=== PATIENT | male | born 1985 | race Caucasian/White ===

== ENCOUNTER 2022-08-02 06:10 | Day surgery (SDC) | payer OTHER ==
[~2022-08-02] VITALS: Ht 188 cm; Wt 108.9 kg
[2022-08-02] MEDS ORDERED: TRAM1TAB98 PO (11:00)
== END 2022-08-02 12:25 | disposition home or self-care (01) ==
LOC: CIR.AMB 06:10
PROVIDERS: ATTEND Surgery
DX: C62.90 Malignant neoplasm of unspecified testis, unspecified whether descended or undescended (principal); Z45.2 Encounter for adjustment and management of vascular access device; F12.90 Cannabis use, unspecified, uncomplicated; Z20.822 Contact with and (suspected) exposure to COVID-19